=== PATIENT | female | born 1970 | race Caucasian/White ===

== ENCOUNTER 2022-11-06 11:30 | Outpatient (CLI) | payer OTHER | END 2022-11-06 11:31 | disposition home or self-care (01) | LOC: CSHMAMMO 11:30 | PROVIDERS: ATTEND Obstetrics & Gynecology | DX: Z12.31 Encounter for screening mammogram for malignant neoplasm of breast (principal) | CPT/HCPCS: 77063; 77067 ==

== ENCOUNTER 2023-11-10 09:07 | Outpatient (CLI) | payer OTHER | END 2023-11-10 09:08 | disposition home or self-care (01) | LOC: CSHMAMMO 09:07 | PROVIDERS: ATTEND Obstetrics & Gynecology | DX: Z12.31 Encounter for screening mammogram for malignant neoplasm of breast (principal); Z80.3 Family history of malignant neoplasm of breast | CPT/HCPCS: 77063; 77067 ==